=== PATIENT | female | born 1970 | race Caucasian/White ===

== ENCOUNTER 2017-08-10 21:50 | Emergency (ER) | payer BC ==
[2017-08-10] MEDS ORDERED: Sodium Chloride 0.9% 10 ML Syringe FLUSH PRN (22:35)
[2017-08-10] MEDS ORDERED: Ondansetron 4 MG/2 ML SDV IVPUSH ONE (22:35)
[2017-08-10 23:25] LABS: CHLORIDE,CL 102 mmol/L (98-107); SODIUM,NA 138 mmol/L (136-145)
--- NOTE | 2017-08-10 23:36 | EDM.PDOC ---
ED HPI GENERAL MEDICAL PROBLEM - General Chief Complaint: Abdominal Pain Stated Complaint: abdominal pain Time Seen by Provider: 08/10/17 21:58 Source of Information: Reports: Patient - History of Present Illness INITIAL COMMENTS - FREE TEXT/NARRATIVE: Patient comes into the emergency department after one hour of abdominal discomfort. Patient describes it as a sharp shooting suprapubic region pain that does not radiate anywhere. She denies being nauseated or vomiting. Denies any diarrhea, painful urination, fever, diaphoresis, frequency or hesitancy. Denies having similar symptoms like this in the past. Denies eating any raw/ undercooked food. Does have a history of drinking 3-4 alcoholic beverages a day. Onset: Sudden Location: Reports: Abdomen (suprapubic ) Quality: Reports: Dull, Pressure Lower Abdomen Pain Score (Numeric/FACES): 7 - Related Data Allergies Allergy/AdvReac Type Severity Reaction Status Date / Time shellfish derived Allergy Nausea and Verified 08/10/17 21:56 Vomiting lisinopril AdvReac Cough Verified 10/04/13 13:07 Home Meds: Home Meds Hydrochlorothiazide [Microzide] 12.5 mg PO DAILY 06/30/13 [History] Metoprolol Tartrate 25 mg PO DAILY 06/30/13 [History] Omeprazole Magnesium [Prilosec Otc] 20 mg PO DAILY 06/30/13 [History] Levothyroxine [Synthroid] 50 mcg PO DAILY 08/10/17 [History] Simvastatin [Zocor] 20 mg PO DAILY 08/10/17 [History] Past Medical History Cardiovascular History: Reports: High Cholesterol, Hypertension Endocrine/Metabolic History: Reports: Hypothyroidism - Past Surgical History Musculoskeletal Surgical History: Reports: Shoulder Surgery Social & Family History - Tobacco Use Smoking Status *Q: Current Every Day Smoker Years of Tobacco use: 38 Packs/Tins Daily: 1 Used Tobacco, but Quit: No - Alcohol Use Days Per Week of Alcohol Use: 3 Number of Drinks Per Day: 3 Total Drinks Per Week: 9 - Recreational Drug Use Recreational Drug Use: No ED ROS GENERAL - Review of Systems Review Of Systems: See Below Constitutional: Reports: No Symptoms HEENT: Reports: No Symptoms Respiratory: Reports: No Symptoms Cardiovascular: Reports: No Symptoms GI/Abdominal: Reports: Abdominal Pain. Denies: Anorexia, Black Stool, Bloody Stool, Constipation, Diarrhea, Decreased Appetite, Distension, Hematemesis, Mucous in Stool, Nausea : Reports: No Symptoms ED EXAM, GI/ABD - Physical Exam Exam: See Below Exam Limited By: No Limitations General Appearance: Alert, WD/WN, No Apparent Distress Head: Atraumatic, Normocephalic Neck: Normal Inspection, Supple, Non-Tender Respiratory/Chest: No Respiratory Distress, Lungs Clear, Normal Breath Sounds, No Accessory Muscle Use, Chest Non-Tender Cardiovascular: Normal Peripheral Pulses, Regular Rate, Rhythm, No Edema GI/Abdominal Exam: Tender (suprapubic region ). No: Distended, Guarding, Rigid , Abnormal Bowel Sounds Back Exam: Normal Inspection, Full Range of Motion Extremities: Normal Inspection, Normal Range of Motion Neurological: Alert, Oriented, CN II-XII Intact, Normal Reflexes Skin Exam: Warm, Dry, Intact, Normal Color Course - Vital Signs Last Recorded V/S: Last Vital Signs Temp 35.8 C 08/10/17 21:58 Pulse 89 08/10/17 21:58 Resp 18 08/10/17 21:58 BP 139/75 08/10/17 21:58 Pulse Ox 94 L 08/10/17 21:58 - Orders/Labs/Meds Orders: Active Orders 24 hr Category Date Time Status Abdomen Pelvis wo Cont [CT] Stat Exams 08/10/17 22:12 Taken Labs: Laboratory Tests 08/10/17 08/10/17 08/10/17 Range/Units 22:58 22:58 23:10 WBC 10.0 (4.0-10.0) x10^3/uL RBC 4.11 (4.00-5.50) x10^6/uL Hgb 13.7 (12.0-16.0) g/dL Hct 41.3 (33.0-47.0) % MCV 100.5 H (78.0-93.0) fL MCH 33.3 H (26.0-32.0) pg MCHC 33.2 (32.0-36.0) g/dL RDW Coeff of Davin 12.5 (10.0-15.0) % Plt Count 239 (130-400) x10^3/uL Neut % (Auto) 64.0 (50.0-80.0) % Lymph % (Auto) 21.5 L (25.0-50.0) % [place] % (Auto) 10.4 (2.0-11.0) % Eos % (Auto) 3.2 (0.0-4.0) % Baso % (Auto) 0.9 (0.2-1.2) % Sodium 138 (136-145) mmol/L Potassium 3.5 (3.5-5.1) mmol/L Chloride 102 (98-107) mmol/L Carbon Dioxide 26 (21-32) mmol/L BUN 12 (7-18) mg/dL Creatinine 0.7 (0.55-1.02) mg/dL Est Cr Clr Drug Dosing TNP Estimated GFR (MDRD) > 60 Glucose 104 (74-106) mg/dL Calcium 8.4 L (8.5-10.1) mg/dL Corrected Calcium 8.80 (8.5-10.1) mg/dL Total Bilirubin 0.3 (0.2-1.0) mg/dL AST 24 (15-37) U/L ALT 44 (14-59) U/L Alkaline Phosphatase 67 (46-116) U/L Total Protein 7.4 (6.4-8.2) g/dL Albumin 3.5 (3.4-5.0) g/dL Globulin 3.9 Albumin/Globulin Ratio 0.90 Urine Color Yellow (YELLOW) Urine Appearance Clear (CLEAR) Urine pH 5.5 (5.0-8.0) Ur Specific [place] <=1.005 Urine Protein Negative (NEGATIVE) mg/dL Urine Glucose (UA) Negative (NEGATIVE) mg/dL Urine Ketones Negative (NEGATIVE) mg/dL Urine Occult Blood Negative (NEGATIVE) Urine Nitrite Negative (NEGATIVE) Urine Bilirubin Negative (NEGATIVE) Urine Urobilinogen 0.2 (0.2) EU/dL Ur Leukocyte Esterase Negative (NEGATIVE) Urine RBC 0-5 (NOT SEEN) /HPF Urine WBC 0-5 (NOT SEEN) /HPF Ur Squamous Epith Cells Moderate H (NEGATIVE) /HPF Urine Bacteria Few H (NEGATIVE) /HPF Urine Mucus Few H (NEGATIVE) /LPF Meds: Medications Discontinued Medications Generic Name Dose Route Start Last Admin Trade Name Freq PRN Reason Stop Dose Admin Ondansetron HCl 4 mg 08/10/17 22:35 Zofran IVPUSH 08/10/17 22:36 ONETIME ONE Sodium Chloride 10 ml 08/10/17 22:35 Saline Flush FLUSH ASDIRECTED PRN Keep Vein Open - Radiology Interpretation CT Results Date: 08/11/17 - Re-Assessments/Exams Free Text/Narrative Re-Assessment/Exam: 08/11/17 00:18 Pain is 0-1. Vital signs within normal limits. NO acute distress. All questions answered prior to discharge. 08/11/17 00:20 Departure - Departure Time of Disposition: 00:15 Disposition: Home, Self-Care 01 Condition: Good Clinical Impression: Diverticula of intestine Abdominal pain Qualifiers: Abdominal location: periumbilical Qualified Code(s): R10.33 - Periumbilical pain - Discharge Information Instructions: Diverticulosis Referrals: Joyce Zee MD [Primary Care Provider] - Forms: ED Department Discharge Additional Instructions: 1. rest 2. reduce alcohol intake 3. Avoid fatty food, spicy items, or foods with small seeds 4. Increase water intake 5. Follow up with PCP if not better within a week for further testing - My Orders Last 24 Hours: My Active Orders 08/10/17 22:12 Abdomen Pelvis wo Cont [CT] Stat - Assessment/Plan Last 24 Hours: My Active Orders 08/10/17 22:12 Abdomen Pelvis wo Cont [CT] Stat Assessment:: 1. Abdominal pain Plan: 1. CT completed and results reviewed with the pt 2. Labs completed in the ED and results reviewed with pt
== END 2017-08-11 00:24 | disposition home or self-care (01) ==
LOC: VM.ED 21:50
DX: K57.30 Diverticulosis of large intestine without perforation or abscess without bleeding (principal); E78.00 Pure hypercholesterolemia, unspecified; I10 Essential (primary) hypertension; E03.9 Hypothyroidism, unspecified; F17.210 Nicotine dependence, cigarettes, uncomplicated; Z91.013 Allergy to seafood; Z88.8 Allergy status to other drugs, medicaments and biological substances; Z79.899 Other long term (current) drug therapy
CPT/HCPCS: 36415; 74176; 80053; 81001; 85025; 99284

== ENCOUNTER 2018-09-27 11:40 | Emergency (ER) | payer BC ==
[2018-09-27] MEDS ORDERED: Metoprolol Succinate 25 MG Tab.ER PO ONE (12:07)
[2018-09-27] MEDS ORDERED: cloNIDine 0.1 MG Tab PO SCH (12:15)
--- NOTE | 2018-09-27 12:16 | EDM.PDOC ---
ED HPI GENERAL MEDICAL PROBLEM - General Chief Complaint: Cardiovascular Problem Stated Complaint: HIGH BLOOD ongoing for a while maybe a year also with indigestion type CPx 2-3 days 1- mid sternal no radation and dull ROSENBERG for a week of so 07/01 not worst ROSENBERG of life Time Seen by Provider: 09/27/18 12:00 Source of Information: Reports: Patient History Limitations: Reports: No Limitations - History of Present Illness INITIAL COMMENTS - FREE TEXT/NARRATIVE: pt says over last yr or so has been having BP issues meds not working and been out x 2 days took metoprolol and HCTZ this am 730 and bp still high was at home 160/90 osei went to [facility] today 148/92 decided to come to ER has been having dull ROSENBERG over forehead not worst ROSENBERG life no vision issues dull throbbing last 1- 2 at time then goes away indigestion type pain mid sternal last 1-2 hrs at time bp meds seem to work in am but as day goes on dont work as well. PT has no other complaints Onset: Gradual Duration: Day(s): Quality: Reports: Burning, Throbbing Severity: Mild Improves with: Reports: Other (time seems last hour or so then goes away then comes back x 2-3 days ) Associated Symptoms: Reports: Chest Pain, Headaches - Related Data Allergies Allergy/AdvReac Type Severity Reaction Status Date / Time lisinopril AdvReac Cough Verified 09/27/18 12:03 shellfish derived AdvReac Nausea and Verified 09/27/18 12:03 Vomiting Home Meds: Home Meds Hydrochlorothiazide [Microzide] 12.5 mg PO DAILY 06/30/13 [History] Omeprazole Magnesium [Prilosec Otc] 20 mg PO DAILY 06/30/13 [History] Levothyroxine [Synthroid] 50 mcg PO DAILY 08/10/17 [History] Simvastatin [Zocor] 20 mg PO DAILY 08/10/17 [History] Albuterol [Proventil HFA] 2 puff INH Q4H PRN 09/27/18 [History] Metoprolol Succinate [Toprol Xl] 50 mg PO DAILY 09/27/18 [History] Sulfamethoxazole/Trimethoprim [Septra DS] 1 each PO BID 3 Days #6 tab 09/27/18 [ Rx] Umeclidinium Reynolds [Incruse Ellipta*] 62.5 mcg IH DAILY 09/27/18 [History] Past Medical History Cardiovascular History: Reports: High Cholesterol, Hypertension Endocrine/Metabolic History: Reports: Hypothyroidism - Past Surgical History Musculoskeletal Surgical History: Reports: Shoulder Surgery Social & Family History - Family History Other Family History: mom with cardiac HX at 48 [place] - Tobacco Use Smoking Status *Q: Current Every Day Smoker Years of Tobacco use: 30 Packs/Tins Daily: 1 ED ROS GENERAL - Review of Systems Review Of Systems: ROS reveals no pertinent complaints other than HPI. Constitutional: Reports: No Symptoms. Denies: Fever, Chills, Malaise, Weakness , Fatigue HEENT: Reports: No Symptoms Respiratory: Denies: Shortness of Breath, Cough, Hemoptysis Cardiovascular: Reports: Chest Pain Endocrine: Reports: No Symptoms GI/Abdominal: Reports: No Symptoms. Denies: Abdominal Pain, Anorexia, Black Stool, Bloody Stool, Difficulty Swallowing : Denies: Dysuria, Flank Pain, Frequency, Hematuria, Urgency Musculoskeletal: Reports: No Symptoms Skin: Reports: No Symptoms Neurological: Reports: Headache. Denies: Confusion, Dizziness, Numbness, Syncope, Weakness Psychiatric: Reports: No Symptoms Hematologic/Lymphatic: Reports: No Symptoms Immunologic: Reports: No Symptoms ED EXAM, GENERAL - Physical Exam Exam: See Below Exam Limited By: No Limitations General Appearance: Alert, WD/WN, No Apparent Distress. No: Anxious Eye Exam: Bilateral Eye: EOMI, Normal Fundi, Normal Inspection, PERRL Ears: Normal External Exam Nose: Normal Inspection Throat/Mouth: Normal Inspection, Normal Lips, Normal Teeth, Normal Gums, Normal Oropharynx, Normal Voice, No Airway Compromise Head: Atraumatic, Normocephalic. No: Sinus Tenderness Neck: Normal Inspection, Non-Tender, Full Range of Motion Respiratory/Chest: No Respiratory Distress, Lungs Clear, Normal Breath Sounds Cardiovascular: Normal Peripheral Pulses, Regular Rate, Rhythm, No Edema, No Gallop, No JVD, No Murmur, No Rub GI/Abdominal: Normal Bowel Sounds, Soft, Non-Tender, No Organomegaly, No Distention Back Exam: No: CVA Tenderness (L), CVA Tenderness (R) Extremities: Normal Inspection, Normal Range of Motion Neurological: Alert, Oriented, CN II-XII Intact, Normal Cognition, Normal Gait, Normal Reflexes, No Motor/Sensory Deficits Psychiatric: Normal Affect, Normal Mood Skin Exam: Warm, Dry, Intact, Normal Color Lymphatic: No Adenopathy EKG INTERPRETATION EKG Date: 09/27/18 Rhythm: NSR [place]: Normal (nsr neg acute findings) Course - Vital Signs Last Recorded V/S: Last Vital Signs Temp 37.4 C 09/27/18 11:40 Pulse 82 09/27/18 11:40 Resp 16 09/27/18 11:40 BP 190/100 H 09/27/18 11:40 Pulse Ox 98 09/27/18 11:40 - Orders/Labs/Meds Orders: Active Orders 24 hr Category Date Time Status EKG 12 Lead [EKG Documentation Completion] [RC] STAT Care 09/27/18 12:04 Ordered BASIC METABOLIC PANEL,BMP [CHEM] Stat Lab 09/27/18 12:03 Ordered CBC W/O DIFF,HEMOGRAM [HEME] Stat Lab 09/27/18 12:04 Ordered TROPONIN I [CHEM] Stat Lab 09/27/18 12:03 Ordered UA W/MICROSCOPIC [URIN] Stat Lab 09/27/18 12:03 Ordered cloNIDine [Catapres] Med 09/27/18 12:15 Ordered 0.1 mg PO DAILY Medication Orders Clonidine HCl (Catapres) 0.1 mg PO DAILY BINDU Meds: Medications Generic Name Dose Route Start Last Admin Trade Name Freq PRN Reason Stop Dose Admin Clonidine HCl 0.1 mg 09/27/18 12:15 Catapres PO DAILY BINDU Discontinued Medications Generic Name Dose Route Start Last Admin Trade Name Freq PRN Reason Stop Dose Admin Metoprolol Succinate 25 mg 09/27/18 12:07 Toprol Xl PO 09/27/18 12:08 ONETIME ONE Departure - Departure Time of Disposition: 14:00 Disposition: Home, Self-Care 01 Condition: Good Clinical Impression: HTN (hypertension) Prescriptions: Sulfamethoxazole/Trimethoprim [Septra DS] 1 each PO BID 3 Days #6 tab - Problem List & Annotations (1) Chest pain, atypical SNOMED Code(s): 731726526 Code(s): R07.89 - OTHER CHEST PAIN Status: Acute Current Visit: Yes (2) HTN (hypertension) SNOMED Code(s): 78977233 Code(s): I10 - ESSENTIAL (PRIMARY) HYPERTENSION Status: Acute Current Visit: Yes (3) Cephalgia SNOMED Code(s): 60152115 Code(s): R51 - HEADACHE Status: Acute Current Visit: Yes - My Orders Last 24 Hours: My Active Orders 09/27/18 12:03 BASIC METABOLIC PANEL,BMP [CHEM] Stat TROPONIN I [CHEM] Stat UA W/MICROSCOPIC [URIN] Stat 09/27/18 12:04 EKG 12 Lead [EKG Documentation Completion] [RC] STAT CBC W/O DIFF,HEMOGRAM [HEME] Stat 09/27/18 12:15 cloNIDine [Catapres] 0.1 mg PO DAILY - Assessment/Plan Last 24 Hours: My Active Orders 09/27/18 12:03 BASIC METABOLIC PANEL,BMP [CHEM] Stat TROPONIN I [CHEM] Stat UA W/MICROSCOPIC [URIN] Stat 09/27/18 12:04 EKG 12 Lead [EKG Documentation Completion] [RC] STAT CBC W/O DIFF,HEMOGRAM [HEME] Stat 09/27/18 12:15 cloNIDine [Catapres] 0.1 mg PO DAILY Plan: pt to start metoprolol 50 mg po BID and cont HCTZ 25mg po qday and follow up with pcp in next 2-3 days pt give verbal understanding rechecked BP 157/92 pt rechecked feels better ROSENBERG gone no CP UA neg protein but pos nitrites will cover 3 days and wait on CS have pt f/u with pcp septra ds bis x 3 days pt states has lots UTI but has no S/s at this time and has apt see pcp in am instructed pcp take metoprolol 25 mg bid till am
[2018-09-27 12:54] LABS: CHLORIDE,CL 98 mmol/L (98-107); SODIUM,NA 138 mmol/L (136-145)
== END 2018-09-27 14:43 | disposition home or self-care (01) ==
LOC: VM.ED 11:40
DX: I10 Essential (primary) hypertension (principal); E78.00 Pure hypercholesterolemia, unspecified; E03.9 Hypothyroidism, unspecified; F17.210 Nicotine dependence, cigarettes, uncomplicated; Z88.8 Allergy status to other drugs, medicaments and biological substances; Z91.013 Allergy to seafood; Z79.899 Other long term (current) drug therapy
CPT/HCPCS: 36415; 80048; 81001; 84484; 85027; 93005; 99283-25; A9270-GY

== ENCOUNTER 2022-04-21 10:25 | Day surgery (SDC) | payer OTHER ==
[~2022-04-21 10:25] MED LIST: Lactated Ringers 1,000 ML IV SCH; Sodium Chloride 0.9% 10 ML Syringe FLUSH PRN
[2022-04-21] MEDS ORDERED: Propofol 200 MG/20 ML SDV ONE ×2 (10:52→12:26)
[2022-04-21] MEDS ORDERED: fentaNYL 100 MCG/2 ML SDV ONE (10:52)
== END 2022-04-21 13:45 | disposition home or self-care (01) ==
LOC: VM.SDS 10:25
PROVIDERS: ATTEND Family Medicine
DX: Z12.11 Encounter for screening for malignant neoplasm of colon (principal); K63.5 Polyp of colon; K57.30 Diverticulosis of large intestine without perforation or abscess without bleeding; I10 Essential (primary) hypertension; J45.909 Unspecified asthma, uncomplicated; E78.00 Pure hypercholesterolemia, unspecified; E03.9 Hypothyroidism, unspecified; E55.9 Vitamin D deficiency, unspecified; E04.9 Nontoxic goiter, unspecified; R73.9 Hyperglycemia, unspecified; F17.210 Nicotine dependence, cigarettes, uncomplicated; Z88.8 Allergy status to other drugs, medicaments and biological substances; Z91.013 Allergy to seafood; Z98.890 Other specified postprocedural states; Z79.899 Other long term (current) drug therapy; Z79.890 Hormone replacement therapy
CPT/HCPCS: 00812; J2704; J3010; J7120

== ENCOUNTER 2024-05-06 20:01 | Emergency (ER) | payer OTHER ==
[2024-05-06] MEDS ORDERED: Sodium Chloride 0.9% 10 ML Syringe FLUSH PRN (20:04)
[2024-05-06 20:21] LABS: BASOPHILS ABSOLUTE AUTO 0.1 x10^3/uL (0.0-0.2); BASOPHILS PERCENT AUTO 0.6 % (0.2-1.2); EOSINOPHILS ABSOLUTE AUTO 0.3 x10^3/uL (0.0-0.5); EOSINOPHILS PERCENT AUTO 2.6 % (0.0-4.0); HEMOGLOBIN 13.9 g/dL (12.0-16.0); IMMATURE GRAN ABSOLUTE AUTO 0.03 x10^3/uL (0.00-0.07); LYMPHOCYTES ABSOLUTE AUTO 1.5 x10^3/uL (1.0-4.8); LYMPHOCYTES PERCENT AUTO 12.8 % (25.0-50.0); MEAN CORPUSCULAR HEMOGLOBIN 33.2 pg (26.0-32.0); MEAN CORPUSCULAR HGB CONC 34.8 g/dL (32.0-36.0); MEAN CORPUSCULAR VOLUME 95.5 fL (78.0-93.0); MONOCYTES ABSOLUTE AUTO 1.2 x10^3/uL (0.0-0.8); MONOCYTES PERCENT AUTO 9.9 % (2.0-11.0); NEUTROPHILS ABSOLUTE AUTO 8.7 x10^3/uL (1.8-7.7); NEUTROPHILS PERCENT AUTO 73.8 % (50.0-80.0); PLATELET COUNT,PLT 244 x10^3/uL (130-400); RED BLOOD CELL COUNT 4.19 x10^6/uL (4.00-5.50); WHITE BLOOD CELL COUNT,WBC 11.8 x10^3/uL (4.0-10.0)
[2024-05-06] MEDS: Albuterol/Ipratropium 3.0-0.5 MG/3 ML Neb Soln NEB ONE ×2 (20:30→21:47)
[2024-05-06 20:50] LABS: A/G RATIO 1.03; ALANINE AMINOTRANSFERASE,ALT 41 U/L (14-59); ALBUMIN 3.8 g/dL (3.4-5.0); ALKALINE PHOSPHATASE 86 U/L (46-116); ANION GAP 12.9 mmol/L (5-15); ASPARTATE AMNIOTRANSFERASE,AST 17 U/L (15-37); BILIRUBIN TOTAL 0.6 mg/dL (0.2-1.0); BLOOD UREA NITROGEN,BUN 12 mg/dL (7-18); CALCIUM 9.3 mg/dL (8.5-10.1); CARBON DIOXIDE,CO2 32 mmol/L (21-32); CHLORIDE,CL 98 mmol/L (98-107); ESTIMATED GFR 66 mL/min (>=60); GLUCOSE RANDOM 113 mg/dL (70-99); POTASSIUM,K 3.9 mmol/L (3.5-5.1); PRO B-TYPE NATRIUR PEPT,BNPPRO 134 pg/mL (<=125); PROTEIN TOTAL,TP 7.5 g/dL (6.4-8.2); SODIUM,NA 139 mmol/L (136-145)
[2024-05-06] MEDS: methylPREDNISolone Sodium Succinate 125 MG/2 ML SDV IVPUSH ONE (21:09)
[2024-05-06] MEDS: Albuterol 0.083% 2.5 MG/3 ML Neb Soln NEB ONE (21:13)
[2024-05-06] MEDS ORDERED: Doxycycline Monohydrate 100 MG Cap PO ONE (21:21)
[2024-05-06] MEDS: Doxycycline Monohydrate 100 MG Cap PO ONE (21:47)
== END 2024-05-06 22:18 | disposition home or self-care (01) ==
LOC: VM.ED 20:01
DX: I24.9 Acute ischemic heart disease, unspecified (principal); J44.1 Chronic obstructive pulmonary disease with (acute) exacerbation; I10 Essential (primary) hypertension; J45.909 Unspecified asthma, uncomplicated; E78.00 Pure hypercholesterolemia, unspecified; E03.9 Hypothyroidism, unspecified; Z88.8 Allergy status to other drugs, medicaments and biological substances; Z91.013 Allergy to seafood; Z79.51 Long term (current) use of inhaled steroids; Z79.52 Long term (current) use of systemic steroids; Z79.890 Hormone replacement therapy; Z79.899 Other long term (current) drug therapy
CPT/HCPCS: 71046; 80053; 83880; 84484; 85025; 93005; 93010; 94640; 96374; 99284; 99285-25; A9270-GY; J2919; J7613-GY; J7620-GY